=== PATIENT | female | born 1995 | race Caucasian/White ===

== ENCOUNTER 2016-05-13 13:42 | Outpatient (CLI) | payer OTHER ==
--- NOTE | 2016-05-13 18:31 | Diagnostic Imaging Report ---
[facility] [id number] [facility].[address] [address] Report Submission Date: May 13, 2016 3:47:32 PM DUST PULLER Patient Study Name: JESSICA RODRIGUEZ Date: May 13, 2016 1:50:53 PM DUST PULLER Modality Type: CR Gender: F Description: LOWER EXTREMITY : 89 Institution: [facility] Physician: EDWIN REYNOLDS 3 views of the left foot History: LEFT FOOT- FOOT SURGERY FOR FLAT FEET IN OCTOBER 2014. PAIN IN FOOT SINCE. (Hx) / FOOT PAIN Findings: No comparison studies Bones are slightly demineralized No evidence of acute fracture or dislocation left foot, joint spaces are preserved, plantar arch is slightly flattened, mild soft tissue swelling noted on the dorsum of the forefoot Impression: 1. No evidence of acute fracture or dislocation of the left foot. 2. Bones appear slightly demineralized. 3. Plantar arch is slightly flattened. Minimal soft tissue swelling at the dorsum of the forefoot. Electronically signed on May 13, 2016 3:47:32 PM DUST PULLER by: Dina CAMACHO
== END 2016-05-13 13:43 ==
LOC: RAD 13:42
PROVIDERS: ATTEND Family Medicine
DX: M79.673 Pain in unspecified foot (principal)
CPT/HCPCS: 73630

== ENCOUNTER 2017-11-13 13:04 | Emergency (ER) | payer OTHER ==
--- NOTE | 2017-11-13 13:25 | ED Physician Documentation ---
Syncope/Near Syncope - HISTORIAN Historian: patient - [facility] Chief Complaint: Syncope Additional Information: patient got up to give another family member a shot today, when she bent over she became nauseated, and developed a syncopal episode. Not sure how long she was out for. Bystander said for several minutes. No seizure activity noted. Patient denies any bowel or bladder incontinence. Patient denies any previous syncopal episode. Patient is not diabetic. Patient does not have a history of hypoglycemia patient denies any tachycardia bradycardia. Witnessed: Yes Witnessed By: family Position at Time of Episode: standing Symptoms Prior to Episode: light-headed Character of Events(s): lost consciousness - ROS CONST: recent illness. denies: fever GI/: diarrhea. denies: black stools LNMP: denies: missed periods, heavy periods, abnml bleed NEURO/PSYCH: denies: confusion, anxiety, depression - PAST HX Cardiac Disease: none Other History: Other Surgeries/Procedures: other (multiple muscle bx, Gama rods in thoracic and lumbar area. Bilater feeet surgery) Allergies/Adverse Reactions: Allergies Allergy/AdvReac Type Severity Reaction Status Date / Time No Known Allergies Allergy Verified 11/13/17 13:24 Home Medications: Ambulatory Orders Medication Instructions Recorded Albuterol Sulfate [Ventolin] 4 mg PO QID 11/13/17 - SOCIAL HX Smoking History: non-smoker Alcohol Use: none Drug Use: none - FAMILY HX Family History: none - VITAL SIGNS Vital Signs: Vital Signs Temp Pulse Resp BP Pulse Ox 98.4 F 95 H 18 111/78 98 11/13/17 13:26 11/13/17 13:26 11/13/17 13:26 11/13/17 13:26 11/13/17 13:26 - REVIEWED ASSESSMENTS Nursing Assessment Reviewed: Yes Vitals Reviewed: Yes ED Results Lab/Radiology - Lab Results Lab Results: Lab Results 11/13/17 11/13/17 13:25 13:25 WBC 5.00 K/ul K/ul (4.00-12.00) RBC 4.28 M/ul M/ul (3.90-5.20) Hgb 13.7 g/dL g/dL (12.0-16.0) Hct 40.9 % % (34.5-46.5) MCV 95.6 fl fl (80.0-100.0) MCH 32.1 pg pg (28.0-34.0) MCHC 33.6 g/dL g/dL (30.0-36.0) RDW 13.2 % % (11.3-14.3) Plt Count 188 K/mm3 K/mm3 (130-400) Neut % (Auto) 50.8 % % (39.0-79.0) Lymph % (Auto) 39.0 % % (16.0-50.0) Ripley % (Auto) 4.1 % % (0.0-11.0) Eos % (Auto) 3.7 % % (0.0-6.8) Baso % (Auto) 0.6 (0.0-1.5) Neut # (Auto) 2.5 # k/uL # k/uL (1.4-7.7) Lymph # (Auto) 1.9 # k/uL # k/uL (0.6-4.0) Ripley # (Auto) 0.2 # k/uL # k/uL (0.0-0.9) Eos # (Auto) 0.2 # k/uL # k/uL (0.0-0.6) Baso # (Auto) 0.0 # k/uL # k/uL (0.0-0.5) Reactive Lymphs % 1.9 % % (0.0-5.0) Reactive Lymphs # 0.1 # k/uL # k/uL (0.0-0.8) Sodium 142 mmol/L mmol/L (136-145) Potassium 4.3 mmol/L mmol/L (3.5-5.1) Chloride 104 mmol/L mmol/L (98-107) Carbon Dioxide 29 mmol/L mmol/L (22-30) BUN 11 mg/dL mg/dL (7-17) Creatinine 0.60 mg/dL mg/dL (0.52-1.04) Estimated Creat Clear 157 Est GFR ( Amer) > 60 (60 - ) Est GFR (Non-Af Amer) > 60 (60 - ) Glucose 88 mg/dL mg/dL (74-106) Calcium 9.4 mg/dL mg/dL (8.4-10.2) Total Bilirubin 0.3 mg/dL mg/dL (0.2-1.3) AST 29 U/L U/L (15-46) ALT 55 U/L U/L (13-69) Alkaline Phosphatase 83 U/L U/L (38-126) Total Protein 6.9 g/dL g/dL (6.3-8.2) Albumin 4.1 g/dL g/dL (3.5-5.0) - Radiology Radiology Impressions: CT brain noncontrast Date of study: November 13, 2017 CLINICAL HISTORY: PT PASSED OUT AND FELL AND HIT HER HEAD (Hx) / ITS.REASON syncopal episode, right frontal pain Note time : 11/13/2017 3:41:31 PM User : Jonathan Eason PT PASSED OUT AND FELL AND HIT HER HEAD (DICOM Hx) TECHNIQUE: 5 mm contiguous axial images of the brain, noncontrast. FINDINGS: There is no evidence of intracranial mass effect, hemorrhage, or acute hydrocephalus. The lateral ventricles are symmetrical and the 4th ventricle is midline without shift. No acute brain parenchymal changes or extra-axial fluid collections are identified. The posterior fossa contents are within normal limits. The calvarium is intact. The visualized sinuses and mastoid air cells are clear. IMPRESSION: No acute intracranial process. - Orders Orders: ED Orders Category Date Time Status Orthostatics 1T Care 11/13/17 14:[address] BRAIN W/O CONTRAST Stat Exams 11/13/17 Completed CBC/PLATELET/DIFF Routine Lab 11/13/17 13:25 Completed CMP Routine Lab 11/13/17 13:25 Completed HCG [URINE HCG] Routine Lab 11/13/17 14:02 Ordered URINALYSIS Routine Lab 11/13/17 14:14 Ordered Acetaminophen [Tylenol] Med 11/13/17 13:43 Discontinued 650 mg PO NOW ONE EKG WITH COMPARISON Routine Ther 11/13/17 13:33 Ordered Syncope Physical Exam - Physical Exam General Appearance: no acute distress, alert EENT: nml eye inspection, PERRL, no apparent trauma, other (tenderness to posterior occiput area) Neck/Back: neck supple, non-tender, no carotid bruit, back tenderness Respiratory: no resp distress, breath sounds normal, other (mild tenderness to the right lateral chest wall area, no bony abnl noted. ). No: wheezes, rales, rhonchi CVS: reg rate & rhythm, heart sounds normal, equal pulses, no murmur, no gallop Abdomen: non-tender, no organomegaly Skin: warm/dry, normal color Extremities: non-tender, normal range of motion, no evidence of injury, no edema - Neuro/Psych Higher Functions: alert, oriented x3, no evidence of acute CVA, mood/affect nml , abnml respond to command Cranial Nerves: nml as tested Cerebellar: nml as tested Sensorimotor: nml motor response, nml sensory response, nml reflexes (slightly demissed in the lwoer extremities), nml gait Discharge Clincal Impression: Syncope Referrals: Kristine Escudero MD [Primary Care Provider] - 2 Days Additional Instructions: Home and rest today. Drink a lot fluids. Move slowly. If you have any further problems to call or return to ED. Condition: Stable Disposition: 01 HOME, SELF-CARE Decision to Admit: NO Date of Decison to Admit: 11/13/17 Decision Time: 15:13
[2017-11-13] MEDS ORDERED: ACETAMINOPHEN 325 MG TABLET PO ONE (13:43)
[2017-11-13 14:16] LABS: BASOPHILS % 0.6 (0.0-1.5); EOSINOPHILS % 3.7 % (0.0-6.8); MEAN CORPUSCULAR HEMOGLOBIN 32.1 pg (28.0-34.0); MEAN CORPUSCULAR VOLUME 95.6 fl (80.0-100.0); MONOCYTES % 4.1 % (0.0-11.0); NEUTROPHILS # 2.5 # k/uL (1.4-7.7)
[2017-11-13 14:23] LABS: eGFR (African) > 60; eGFR (Non-African) > 60
--- NOTE | 2017-11-13 14:56 | Diagnostic Imaging Report ---
BO THAO [facility] [address] [facility] [address] [address] Report Submission Date: Nov 13, 2017 2:52:59 PM CDT Patient Study Name: JESSICA RODRIGUEZ Date: Nov 13, 2017 2:29:00 PM CDT Modality Type: CT\SR Gender: F Description: CT BRAIN W/O CONTRAST : 89 Institution: [facility] Physician: BO THAO CT brain noncontrast Date of study: November 13, 2017 CLINICAL HISTORY: PT PASSED OUT AND FELL AND HIT HER HEAD (Hx) / ITS.REASON syncopal episode, right frontal pain Note time : 11/13/2017 3:41:31 PM User : Jonathan Eason PT PASSED OUT AND FELL AND HIT HER HEAD (DICOM Hx) TECHNIQUE: 5 mm contiguous axial images of the brain, noncontrast. FINDINGS: There is no evidence of intracranial mass effect, hemorrhage, or acute hydrocephalus. The lateral ventricles are symmetrical and the 4th ventricle is midline without shift. No acute brain parenchymal changes or extra-axial fluid collections are identified. The posterior fossa contents are within normal limits. The calvarium is intact. The visualized sinuses and mastoid air cells are clear. IMPRESSION: No acute intracranial process. Electronically signed on Nov 13, 2017 2:52:59 PM CDT by: Hernan CAMACHO
[2017-11-13 15:29] VITALS: BP 112/62
[2017-11-14 07:30] LABS: APPEARANCE,URINE CLOUDY (CLEAR); COLOR,URINE YELLOW (YELLOW); OCCULT BLOOD,URINE NEGATIVE (NEGATIVE); PH URINE 8.5 (5.0 - 8.0); UROBILINOGEN URINE 0.2 Eu (0.2-1.0)
== END 2017-11-13 15:28 | disposition home or self-care (01) ==
LOC: ED 13:04
DX: R55 Syncope and collapse (principal)
CPT/HCPCS: 70450; 80053; 81002; 81025; 85025; 99284